=== PATIENT | female | born 1970 | race Caucasian/White ===

== ENCOUNTER 2017-11-15 18:52 | Emergency (ER) | payer MEDICAID ==
[2017-11-15] MEDS ORDERED: Tdap Vaccine 0.5 ml Vial (10-64 yrs) IM ONE ×2 (19:45→19:56)
[2017-11-15] MEDS ORDERED: Amoxicillin-Clav 875-125 mg Tab PO STA (19:47)
[2017-11-15] MEDS ORDERED: Amoxicillin-Clav 875-125 mg Tab PO ONE (19:56)
--- NOTE | 2017-11-15 20:20 | C.PDOC ---
History Of Present Illness 47 year old female presents to the ED c/o pain and swelling to her left hand. Patient states she was bitten by her cat yesterday and used alcohol to clean the area. Patient noticed the area became red today which prompted the visit. Patient denies fever, chills, nausea, vomit, drainage. Time Seen by Provider: 11/15/17 19:28 Chief Complaint (Nursing): Upper Extremity Problem/Injury History Per: Patient History/Exam Limitations: no limitations Onset/Duration Of Symptoms: Days Current Symptoms Are (Timing): Still Present Quality: "Pain" Recent travel outside of the [place]: No Additional History Per: Patient Past Medical History Reviewed: Historical Data, Nursing Documentation, Vital Signs Vital Signs: Last Vital Signs Temp 98.6 F 11/15/17 20:27 Pulse 85 11/15/17 20:27 Resp 18 11/15/17 20:27 BP 119/82 11/15/17 20:27 Pulse Ox 99 11/16/17 00:51 - Medical History PMH: Hyperlipidemia Surgical History: No Surg Hx Family History: States: Unknown Family Hx - Social History Hx Alcohol Use: No Hx Substance Use: No - Immunization History Hx Tetanus Toxoid Vaccination: No Hx Influenza Vaccination: No Hx Pneumococcal Vaccination: No Review Of Systems Constitutional: Negative for: Fever, Chills Musculoskeletal: Positive for: Hand Pain Neurological: Negative for: Weakness, Numbness Physical Exam - Physical Exam Appears: Non-toxic, No Acute Distress Skin: Normal Color, Warm, Dry Head: Atraumatic, Normacephalic Eye(s): bilateral: Normal Inspection Extremity: Normal ROM, Tenderness (left hand ulnar area), Capillary Refill (< 2 seconds), No Swelling, Other (localized erythema to dorsal aspect of left hand ulnar area. no open lesion, warmth ) Pulses: Left Radial: Normal, Right Radial: Normal Neurological/Psych: Oriented x3, Normal Speech, Normal Motor, Normal Sensation Gait: Steady ED Course And Treatment O2 Sat by Pulse Oximetry: 99 (ON RA) Pulse Ox Interpretation: Normal Progress Note: Plan: - tetanus immunization. - Augmentin 1 tab PO. Patient was advised to follow up on wound care in 2 days. Patient had tetanus and augmentin started today. 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 - Scribe Statement The provider has reviewed the documentation as recorded by the Scribe Pranav Rowan All medical record entries made by the Scribe were at my direction and personally dictated by me. I have reviewed the chart and agree that the record accurately reflects my personal performance of the history, physical exam, medical decision making, and the department course for this patient. I have also personally directed, reviewed, and agree with the discharge instructions and disposition.
[2017-11-15 20:29] VITALS: BP 119/82; PULSE 85; RESP 18; TEMP 98.6
[2017-11-16 00:48] VITALS: O2SAT 99
== END 2017-11-15 20:29 | disposition home or self-care (01) ==
LOC: C.ER 18:52
DX: S61.452A Open bite of left hand, initial encounter (principal); W55.01XA Bitten by cat, initial encounter; Y92.9 Unspecified place or not applicable; Z23 Encounter for immunization